=== PATIENT | male | born 1975 | race African-American/Black ===

== ENCOUNTER 2016-06-22 07:54 | Outpatient (CLI) | payer OTHER | END 2016-06-22 07:55 | disposition home or self-care (01) | DX: S83.412A Sprain of medial collateral ligament of left knee, initial encounter (principal); M23.92 Unspecified internal derangement of left knee ==

== ENCOUNTER 2016-11-02 07:40 | Outpatient (CLI) | payer OTHER ==
--- NOTE | 2016-11-02 15:49 | MRI Report ---
EXAM: LEFT ANKLE/HINDFOOT MRI WITHOUT CONTRAST EXAM DATE: 11/02/2016 08:41 AM. CLINICAL HISTORY: PAIN IN LEFT FOOT. COMPARISON: None. TECHNIQUE: Multiplanar, multisequence T1-weighted and fluid-sensitive sequences of the ankle/hindfoot without contrast. Other: None. FINDINGS: Bones: Small subcentimeter focus mild patchy marrow edema in the medial talar dome and talar neck. Re maining bony structures normal. No fracture. Articular Cartilage: Focal cartilage thinning lateral aspect of the calcaneocuboid joint. Cartilage o therwise well-preserved in the ankle and hindfoot. Ligaments: The anterior and posterior tibiofibular, anterior and posterior talofibular, and calcaneof ibular ligaments are intact. The deep and superficial deltoid and spring ligaments are intact. Anterior Tendons: The tibialis anterior, extensor hallucis longus, and extensor digitorum longus tend ons are unremarkable. Medial Tendons: The tibialis posterior, flexor digitorum longus, and flexor hallucis longus tendons a re unremarkable. Lateral Tendons: The peroneus brevis and longus are unremarkable. Achilles Tendon: The Achilles tendon is unremarkable. Musculature: No edema or fatty atrophy. Other: No effusions. The contents of the sinus tarsi and tarsal tunnel are unremarkable. Mild thicken ing and T2 hyperintensity of the lateral plantar fascia origin near the calcaneus. Adjacent edema. There is a 0.4 cm partial-thickness tear along the lateral origin at the calcaneus. Mild subcutaneous edema in the heel. IMPRESSION: 1. Lateral plantar fasciitis with small partial thickness tear of the lateral plantar fascia origin. 2. Mild patchy marrow edema medial talar body and neck, likely stress reaction. 3. 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 [facility] MUSCULOSKELETAL RADIOLOGY SECTION Referring Provider Line: [phone] SITE ID: [id number]
== END 2016-11-02 07:41 | disposition home or self-care (01) ==
LOC: DI 07:40
PROVIDERS: ATTEND Physician Assistant
DX: M79.672 Pain in left foot (principal); M72.2 Plantar fascial fibromatosis; M94.28 Chondromalacia, other site

== ENCOUNTER 2017-03-16 06:11 | Outpatient (CLI) | payer OTHER | END 2017-03-16 06:12 | disposition EMS.NT | LOC: EMS 06:11 | PROVIDERS: ATTEND Surgery | DX: R42 Dizziness and giddiness (principal) ==

== ENCOUNTER 2018-05-16 14:57 | Outpatient (CLI) | payer OTHER | END 2018-05-16 14:58 | disposition home or self-care (01) | LOC: SC 14:57 | PROVIDERS: ATTEND Internal Medicine Pulmonary Disease | DX: R06.83 Snoring (principal); R06.81 Apnea, not elsewhere classified; G47.8 Other sleep disorders; R41.89 Other symptoms and signs involving cognitive functions and awareness; G47.10 Hypersomnia, unspecified; E66.9 Obesity, unspecified; Z68.31 Body mass index [BMI] 31.0-31.9, adult | CPT/HCPCS: 99203; 99212 ==

== ENCOUNTER 2018-05-28 19:07 | Outpatient (CLI) | payer OTHER | END 2018-05-28 19:08 | disposition home or self-care (01) | LOC: SC 19:07 | PROVIDERS: ATTEND Internal Medicine Pulmonary Disease | DX: G47.33 Obstructive sleep apnea (adult) (pediatric) (principal) | CPT/HCPCS: 95810 ==

== ENCOUNTER 2018-07-04 09:03 | Outpatient (CLI) | payer OTHER | END 2018-07-04 09:04 | disposition home or self-care (01) | LOC: SC 09:03 | PROVIDERS: ATTEND Nurse Practitioner Family | DX: G47.33 Obstructive sleep apnea (adult) (pediatric) (principal) | CPT/HCPCS: 99212; 99214 ==

== ENCOUNTER 2018-09-05 08:24 | Outpatient (CLI) | payer OTHER | END 2018-09-05 08:25 | disposition home or self-care (01) | LOC: SC 08:24 | PROVIDERS: ATTEND Nurse Practitioner Family | DX: G47.33 Obstructive sleep apnea (adult) (pediatric) (principal) | CPT/HCPCS: 99212; 99214 ==

== ENCOUNTER 2018-10-27 08:18 | Outpatient (CLI) | payer OTHER ==
--- NOTE | 2018-10-30 10:27 | MRI Report ---
Reason: RT KNEE PAIN Procedure Date: 10/27/2018 Accession Number: [id number] / [id number] Procedure: MRI - Knee RT W/O CPT Code: FULL RESULT: EXAM: RIGHT KNEE MRI WITHOUT CONTRAST EXAM DATE: 10/27/2018 08:36 AM. CLINICAL HISTORY: Sports related injury. Right knee pain. COMPARISON: None. TECHNIQUE: Multiplanar, multisequence T1-weighted and fluid-sensitive sequences of the knee without contrast. Other: None. FINDINGS: Bones: Small foci of subchondral edema in the medial compartment. There are no visible fractures. There is an accessory ossification center at the tibial tuberosity. There is increased T2 signal between the accessory ossicle and the underlying bone, raising the possibility of pseudoarticulation.. Articular Cartilage: Grade 3 erosion of the hyaline cartilage of the femoral trochlea with small foci of subchondral edema. Medial Meniscus: There is a radial tear at the junction of the posterior horn and body of the medial meniscus with mild extrusion. Lateral Meniscus: The lateral meniscus is intact. Cruciate Ligaments: The anterior and posterior cruciate ligaments are intact. Collateral Ligaments: The medial collateral and lateral collateral ligamentous structures are intact. Tendons: The quadriceps, patellar, semimembranosus, and popliteus tendons are unremarkable. Musculature: No edema or fatty atrophy. Other: There is a small joint effusion. No popliteal cyst. No loose bodies. The medial and lateral retinacula are intact. The subcutaneous tissues and fat pads are unremarkable. IMPRESSION: 1. Radial tear at the junction of the posterior and body of the medial meniscus with mild extrusion. Mild edema of the adjacent medial femoral and tibial condyle. 2. 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 3. Accessory ossification center at the tibial tuberosity with possible pseudoarticulation. Clinical correlation is recommended. 4. Small joint effusion. [facility]
== END 2018-10-27 08:19 | disposition home or self-care (01) ==
LOC: DI 08:18
PROVIDERS: ATTEND Physician Assistant
DX: S83.241A Other tear of medial meniscus, current injury, right knee, initial encounter (principal); M17.11 Unilateral primary osteoarthritis, right knee; M25.461 Effusion, right knee

== ENCOUNTER 2018-11-16 08:55 | Outpatient (CLI) | payer OTHER ==
[2018-11-16 09:47] VITALS: BP 104/60
--- NOTE | 2018-11-16 09:47 | SLEEP CARE CONSULTATION ---
Information from patient questionnaire entered by Vesna Browning. I have reviewed and concur with the information entered by Vesna Browning. This document represents the service I personally performed and the decisions made by me, Alondra Cortez, RN, MSN, [employer]. History of Present Illness Previous diagnosis: Mild, Obstructive Sleep Apnea-Hypopnea Syndrome AHI: 10.2 Reason for CPAP/BiPAP follow up: first compliance Equipment type: CPAP Equipment obtained from: [employer] Mask style: Full face Mask brand: Resmed Backup mask available: No (When mask is replaced , keep as spare) Last cushion change: not since set up CPAP Compliance Data - Data Reviewed with Patient Average duration of nightly device use: 4.7 Compliance rate %: 63.3 Current pressure setting (cmH2O): 4-15 Humidity settin Heated hose settin Average residual AHI: 3.1 Average large leak: 1 min 42 secs Subjective Missed days of use due to: reports: mask issues, other (pressure discomfort when went higher ) Patient concerns: reports: air blowing in eyes (with mask leaks), nasal congestion (mild - uses sinus flush), dry mouth, nose, throat (mild), other (initially had difficulty using CPAP due to mask discomfort better since trimmed nose hairs ). denies: aerophagia, mask discomfort, mask leak noise, condensation in mask/hose, epistaxis Observed to snore while using device: No Current pressure setting perceived as: too high (waking with pressure too high and noted at 9cmH20 or more) On therapy, patient: reports: sleeping better, awakening more refreshed, being more awake and alert during the day, more rested overall. denies: drowsiness while driving Initial Crawford Sleepiness Scale score: 14 Current Crawford Sleepiness Scale score: 3 Allergies and Home Medications Known drug allergies: Yes (amoxicillin) Home medication list reviewed: Yes Allergy and home medication list: Medication Name (generic/name brand) Strength & Dosage Viagra As directed Gink[place] 50mg tab one daily Tumeric 15mg tab one daily COQ10 Cap one daily Fish Oil Cap one daily Collagen pill with magnesium 4 tablets a day. Allergy List Amoxicillin Review of Systems Review of systems same as previous: No (Toe nail fungus - added medication terafin ) Physical Exam Blood Pressure: 104/60 Cuff size: long Heart Rate: 60 O2 Saturation: 98 Height: 5 ft 11 in Weight: 227 lb 12.8 oz (no gear) Body Mass Index: 31.7 BMI Classification: Obesity Class 1 Impression and Plan 1. Obstructive Sleep Apnea-Hypopnea Syndrome, mild, with fair treatment compliance and good apnea control. Compliance affected by mask discomfort, air leaks and pressure comfort. Mask comfort resolved with trimming of nose hairs. On CPAP therapy, the patient has better sleep quality and is more rested overall. He is very pleased with benefit of treatment in increase of alertness and energy and productivity especially when gets adequate sleep of 7 -7.5 hours. For his mask leaks when sleeping on his side, I showed him a sample CPAP pillow. This and other styles can be bought online. To reduce waking from too much press ure, I will reduce pressure range to 4-8cmH20. He is to contact me if uncomfortable. He is also planning on losing weight. I showed him his BMI of 31 which is class 1 obesity and his goal of losing weight and reducing waist size which will reduce apnea risks and overall health risks. His current CPAP range should accomodate pressure reduction with weight. However, symptoms to report for pressure adjustment discussed. To reduce dryness symptoms, he was shown how to increase humidity and reduce heated hose on sample device with rationale and written instructions. Patient's apnea severity and rationale for treatment to reduce apnea, improve sleep quality and reduce cardiovascular and cerebrovascular events was reviewed. I also reviewed the benefit of consistent device use of CPAP for depression/anxiety. Patient had many questions that were answered about CPAP care. He is transferring and it hoped that he will be able to continue to use CPAP successfully until he can follow up with another sleep provider in the next several months. Goal is to be seen annually to ensure treatment is successful and efficient. * * Change CPAP pressure to 4-8 cmH2O * consider CPAP pillow * Adjust humidity and heated hose. * Notify me if snoring with mask or feeling that the pressure is too much or too little * Attempt to lose weight * Return for follow up with new sleep provider after transfer or sooner if concerns arise I spent 100% of this 40 minute visit face to face with the patient with greater than 50% of this was spent time counseling the patient and coordination of care.
== END 2018-11-16 08:56 | disposition home or self-care (01) ==
LOC: SC 08:55
PROVIDERS: ATTEND Nurse Practitioner Family
DX: G47.33 Obstructive sleep apnea (adult) (pediatric) (principal); E66.9 Obesity, unspecified; Z68.31 Body mass index [BMI] 31.0-31.9, adult
CPT/HCPCS: 99212; 99215